=== PATIENT | female | born 1945 | race Caucasian/White ===

== ENCOUNTER 2021-11-28 16:23 | Outpatient (CLI) | payer MEDICARE | END 2021-11-28 16:24 | disposition home or self-care (01) | LOC: CSHLAB 16:23 | PROVIDERS: ATTEND Surgery | DX: Z20.822 Contact with and (suspected) exposure to COVID-19 (principal); C50.211 Malignant neoplasm of upper-inner quadrant of right female breast; Z17.1 Estrogen receptor negative status [ER-] | CPT/HCPCS: U0003; U0005 ==

== ENCOUNTER 2021-11-30 07:11 | Day surgery (SDC) | payer MEDICARE ==
[2021-11-28 16:00] VITALS: BMI 19.9
[~2021-11-30 07:11] MED LIST: Bupivacaine PF 0.5% 30 ML VIAL ONE; EPINEPHrine 1 MG/ML AMP ONE; Methylene Blue 50 MG/10 ML AMPUL ONE
[2021-11-30] MEDS ORDERED: Dexamethasone 4 mg/ml Vial ONE ×2 (08:09→11:05)
[2021-11-30] MEDS ORDERED: Ondansetron PF 4 MG/2 ML Vial ONE ×2 (08:09→13:17)
[2021-11-30] MEDS ORDERED: Lidocaine 1% PF 5 ML VIAL ONE (08:09)
[2021-11-30] MEDS ORDERED: Fentanyl 100 MCG/2 ML VIAL ONE ×2 (08:09→11:58)
[2021-11-30] MEDS ORDERED: PROPOFOL 20 ML ONE (08:09)
[2021-11-30] MEDS ORDERED: Lidocaine 1% MPF 2 ML VIAL ONE (08:47)
[2021-11-30] MEDS ORDERED: ceFAZolin 2 GM/Dextrose 50 ML IVPB ONE (09:22)
[2021-11-30] MEDS ORDERED: Isosulfan Blue 50 MG/5 ML VIAL ONE (10:21)
[2021-11-30] MEDS ORDERED: Ketorolac Tromethamine 30 MG/ML VIAL ONE (11:34)
[2021-11-30] MEDS ORDERED: HYDROcodone/Acetaminophen 5/325 mg Tablet PO PRN (12:09)
[2021-11-30] MEDS ORDERED: Acetaminophen 325 MG TAB PO PRN (12:09)
[2021-11-30] MEDS ORDERED: HYDROcodone/Acetaminophen 5/325 mg Tablet ONE (13:38)
== END 2021-11-30 14:30 | disposition home or self-care (01) ==
LOC: CSHSDC 07:11
PROVIDERS: ATTEND Surgery
PROC: 0HBT0ZZ Excision of Right Breast, Open Approach (ICD-10-PCS; principal; 2021-11-30)
PROC: 07B50ZX Excision of Right Axillary Lymphatic, Open Approach, Diagnostic (ICD-10-PCS; 2021-11-30)
DX: C50.211 Malignant neoplasm of upper-inner quadrant of right female breast (principal); Z17.1 Estrogen receptor negative status [ER-]; Z79.899 Other long term (current) drug therapy
CPT/HCPCS: 19281; 19301; 38525; 38900; 76098; 78195; A9541; C1713; Q9968 ×2; 88305; 88307; 88342; J0171; J0690; J1100; J1885; J2405; J2704; J3010; S0020

== ENCOUNTER 2023-02-13 12:00 | Outpatient (CLI) | payer MEDICARE | END 2023-02-13 12:01 | disposition home or self-care (01) | LOC: CSHMAMMO 12:00 | PROVIDERS: ATTEND Family Medicine | DX: Z13.820 Encounter for screening for osteoporosis (principal); M85.89 Other specified disorders of bone density and structure, multiple sites | CPT/HCPCS: 77080 ==